=== PATIENT | male | born 1970 | race Caucasian/White ===

== ENCOUNTER 2022-06-08 10:12 | Day surgery (SDC) | payer BC ==
[~2022-06-08] VITALS: Ht 185.4 cm; Wt 95.7 kg
[2022-06-08] MEDS ORDERED: METO100ER PO (10:41)
[2022-06-08] MEDS ORDERED: Cyclobenzaprine5 MG PO (10:42)
[2022-06-08] MEDS ORDERED: BUPRENORPHINE HC8 MG SL (10:42)
[2022-06-08] MEDS ORDERED: Neurontin800 MG PO (10:43)
[2022-06-08] MEDS ORDERED: CATAPRES0.3 MG PO (10:44)
[2022-06-08] MEDS ORDERED: ROSUVASTATIN CA20 MG PO (10:44)
[2022-06-08] MEDS ORDERED: BUPROPION XL150 M1 PO (10:44)
[2022-06-08] MEDS ORDERED: VENLAFAXINE HC150 M2 PO (10:45)
[2022-06-08] MEDS ORDERED: DRAMAMINE25 M3 PO (10:46)
[2022-06-08] MEDS ORDERED: Prednisone10 MG PO (10:47)
--- NOTE | 2022-06-08 12:08 | NUR ---
06/08/22 1208 Christine Sidhu PT STATES PENICILLIN ALLERGY THAT HE WAS "TOLD BY MOM THAT HE IS ALLERGIC TO PENICILLIN" A KID AND THE REACTION IS UNKNOWN TO HIM. CONSULTED DR HUSSEIN CONCERNING PENICILLIN ALLERGY AND ANCEF ORDER, PER DR HUSSEIN OKAY TO PROCEED WITH ANCEF DESPITE ALLERGY.
--- NOTE | 2022-06-08 12:40 | NUR ---
06/08/22 1240 Kay Beckwith 1 MG EPI ADDED TO THE FIRST BAG OF LR PER ORDER FOR IRRIGATION AT [facility].
--- NOTE | 2022-06-08 14:22 | NUR ---
06/08/22 1422 Jeffrey Patel PT REPORTED /10 PAIN AT TIME OF DISCHARGE. HE STATED PAIN WAS TOLERABLE AND EXPRESSED EAGERNESS TO RETURN HOME. HE APPEARED CALM AND RELAXED.
== END 2022-06-08 14:21 | disposition home or self-care (01) ==
LOC: ORSCSDS 10:12
PROVIDERS: Orthopaedic Surgery
PROC: 0SBD4ZZ Excision of Left Knee Joint, Percutaneous Endoscopic Approach (ICD-10-PCS; principal; 2022-06-08 11:30)
DX: S83.282A Other tear of lateral meniscus, current injury, left knee, initial encounter (principal); S83.242A Other tear of medial meniscus, current injury, left knee, initial encounter; M23.42 Loose body in knee, left knee; I10 Essential (primary) hypertension; F17.210 Nicotine dependence, cigarettes, uncomplicated; K21.9 Gastro-esophageal reflux disease without esophagitis; F32.A Depression, unspecified; Z79.899 Other long term (current) drug therapy
CPT/HCPCS: J0171; J0690; J1100; J1720; J1885; J2250; J2370; J2405; J2704; J3010; J7120